=== PATIENT | female | born 1995 | race Caucasian/White ===

== ENCOUNTER → 2016-08-27 | Emergency (ER) | payer MEDICAID ==
[2011-05-26 07:40] VITALS: BMI 14.4
== END | disposition home or self-care (01) ==
LOC: D.ER 16:49
DX: Z02.9 Encounter for administrative examinations, unspecified (principal)

== ENCOUNTER → 2017-08-10 11:06 | Outpatient (CLI) | payer OTHER ==
[2011-05-26 07:40] VITALS: BMI 14.4
[2017-08-10 12:04] LABS: HCG SERUM NEGATIVE (NEGATIVE)
== END | disposition home or self-care (01) ==
LOC: D.NM 08-07 11:30
PROVIDERS: Internal Medicine Gastroenterology
DX: K31.89 Other diseases of stomach and duodenum (principal); R11.10 Vomiting, unspecified; K21.9 Gastro-esophageal reflux disease without esophagitis

== ENCOUNTER 2018-11-17 14:31 | Inpatient (IN) | payer MEDICAID ==
[~2018-11-17] VITALS: Ht 149.9 cm; Wt 59.1 kg
[2018-11-17] MEDS ORDERED: CARAFATE1 G PO (14:33)
[2018-11-17] MEDS ORDERED: BUTALB-APAP-CA1 EACH PO (14:33)
[2018-11-17] MEDS ORDERED: OMEPRAZOLE20 M1 PO (14:34)
--- NOTE | 2018-11-17 14:43 | NUR ---
URINE SAMPLE SENT TO THE LAB AT THIS TIME.
[2018-11-17 15:11] LABS: HCG URINE NEGATIVE (NEGATIVE)
[2018-11-17 15:11] LABS: BASOPHILS 0.1 % (0-2); EOSINOPHILS 0 % (0-7); HEMATOCRIT 36.8 % (36.0-48.0); HEMOGLOBIN 12.5 g/dL (12-16); IMMATURE GRANULOCYTES 0.4 % (0-5); LYMPHOCYTES 7.8 % (15-50); MCH 29.4 pg (26.0-34.0); MCV 86.6 fL (80.0-100.0); MEAN PLATELET VOLUME 10.2 fL (7.4-10.4); MONOCYTES 8.6 % (2-11); NEUTROPHILS 83.1 % (40-80); PLATELET COUNT 263 10x3/uL (130-400); RBC 4.25 10x6/uL (4.00-5.40); RDW 14.1 % (11.5-14.5); WBC 18.8 10x3/uL (4.8-10.8)
[2018-11-17 15:17] LABS: APPEARANCE HAZY (CLEAR); BILIRUBIN NEGATIVE (NEGATIVE); COLOR YELLOW (YELLOW); GLUCOSE NEGATIVE (NEGATIVE); KETONE NEGATIVE (NEGATIVE); NITRITE POSITIVE (NEGATIVE); PROTEIN TRACE mg/dL (NEGATIVE); UROBILINOGEN NORMAL (NORMAL)
[2018-11-17 15:19] LABS: BACTERIA MANY /hpf (NONE SEEN); EPITHELIAL CELLS 0-5 /hpf (0-5); RED CELLS - URINE OCC /hpf (0-5); WHITE CELLS - URINE 25-50 /hpf (0-5)
[2018-11-17 15:24] LABS: ALKALINE PHOSPHATASE 81 U/L (46-116); ALT (SGPT) 12 U/L (10-68); BILIRUBIN - TOTAL 0.39 mg/dL (0.2-1.3); CALC OSMOLALITY 260 mosm/kg (275-300); CALCIUM 8.3 mg/dL (8.5-10.1); CARBON DIOXIDE 25.8 mmol/L (21.0-32.0); CHLORIDE - SERUM 97 mmol/L (98-107); CREATININE - SERUM 0.9 mg/dL (0.6-1.3); GLUCOSE 87 mg/dL (74-106); PROTEIN - SERUM 7.8 g/dL (6.4-8.2); SODIUM 132 mmol/L (136-145); UREA NITROGEN 4 mg/dL (7-18); eGFR NON AFRICAN AMERICAN 81 mL/min (90-120)
[2018-11-17 15:32] LABS: POTASSIUM - SERUM 2.9 mmol/L (3.5-5.1)
--- NOTE | 2018-11-17 15:45 | NUR ---
PT STATES SHE CANNOT DRINK POTASSIUM CL ORAL POWDER D/T TASTE, EDP NOTIFIED.
--- NOTE | 2018-11-17 15:49 | NUR ---
PT LEAVING ED VIA STRETCHER FOR ORDERED CT SCAN. NO SIGNS OF DISTRESS NOTED WHEN LEAVING.
[2018-11-17 16:27] VITALS: BP 119/64
[2018-11-17 17:00] VITALS: BP 111/65
[2018-11-17 17:30] VITALS: BP 98/63
--- NOTE | 2018-11-17 18:30 | NUR ---
NEW PATIENT ADMIT FROM ER WITH PYLONEPHRITIS WITH SEPSIS. PATIENT IS AWAKE, ALERT AND ORIENTED X 4. PATIENT APPEARS IN NO ACUTE DISTRESS. PATIENT DENIES ANY NEEDS OR PAIN . ASSESSMENT COMPLETED. WILL CONTINUE WITH PLAN OF CARE. SR UP X 2 BED IN LOW POSITION AND CALL LIGHT IN REACH.
[2018-11-17 18:32] VITALS: BP 106/73; Ht 149.9 cm; Wt 59.1 kg
[2018-11-17 20:00] VITALS: BP 97/62
--- NOTE | 2018-11-17 20:20 | NUR ---
PT IN BED. PROVIDED BLANKET AND PAIN MED PER REQUEST. PT DENIES FURTHER NEEDS AT THIS TIME.
[2018-11-17 22:48] LABS: ANION GAP 10.2 mmol/L (8-16); CALCIUM 7.2 mg/dL (8.5-10.1); CARBON DIOXIDE 24.1 mmol/L (21.0-32.0); POTASSIUM - SERUM 3.3 mmol/L (3.5-5.1)
[2018-11-18] VITALS: BP 95/58
[2018-11-18 04:00] VITALS: BP 97/64
[2018-11-18 06:54] LABS: BASOPHILS 0.1 % (0-2); EOSINOPHILS 0 % (0-7); HEMATOCRIT 33.9 % (36.0-48.0); HEMOGLOBIN 11.5 g/dL (12-16); IMMATURE GRANULOCYTES 0.3 % (0-5); LYMPHOCYTES 5.2 % (15-50); MCH 29.1 pg (26.0-34.0); MCHC 33.9 g/dL (31.0-37.0); MCV 85.8 fL (80.0-100.0); MEAN PLATELET VOLUME 9.9 fL (7.4-10.4); MONOCYTES 6.7 % (2-11); NEUTROPHILS 87.7 % (40-80); RBC 3.95 10x6/uL (4.00-5.40); RDW 14.2 % (11.5-14.5)
[2018-11-18 06:55] LABS: PLATELET COUNT 209 10x3/uL (130-400); WBC 11.6 10x3/uL (4.8-10.8)
[2018-11-18 07:21] LABS: CALC OSMOLALITY 269 mosm/kg (275-300); CALCIUM 7.5 mg/dL (8.5-10.1); CARBON DIOXIDE 22.2 mmol/L (21.0-32.0); CHLORIDE - SERUM 105 mmol/L (98-107); CREATININE - SERUM 0.9 mg/dL (0.6-1.3); GLUCOSE 100 mg/dL (74-106); MAGNESIUM - SERUM 1.5 mg/dL (1.8-2.4); PHOSPHOROUS 1.9 mg/dL (2.5-4.9); POTASSIUM - SERUM 3.4 mmol/L (3.5-5.1); SODIUM 136 mmol/L (136-145); UREA NITROGEN 7 mg/dL (7-18); eGFR NON AFRICAN AMERICAN 81 mL/min (90-120)
--- NOTE | 2018-11-18 09:30 | NUR ---
REPORT RECEIVED FROM BARREL CHARRER HELPER AND PATIENT CARE ASSUMED. PATIENT LAYING IN BED WITH EYES CLOSED AND BREATHING EVNELY. PATIENT IS STABLE AND VSS. PATIENT DENEIS ANY NEEDS OR PAIN. WILL CONTINUE TO MONITOR. SR UP X 2 BED IN LOW POSTION AND CALL LIGHT IN REACH.
[2018-11-18 12:00] VITALS: BP 114/78
[2018-11-18 14:42] VITALS: BP 110/64
--- NOTE | 2018-11-18 14:51 | NUR ---
PATIENT RESTING COMFORTABLY IN BED WITH BOYFRIEND AT BS. PATIENT IS STABLE AND VSS. WILL CONTINUE TO MONITOR. SR UP X 2 BED IN LOW POSITION AND CALL LIGHT IN REACH.
[2018-11-18 17:13] VITALS: BP 109/68
[2018-11-18 20:00] VITALS: BP 120/73
--- NOTE | 2018-11-18 20:04 | NUR ---
BEDSIDE SHIFT REPORT RECEIVED FROM DAY SHIFT RN, PT CARE ASSUMED. PT AAOX4, LYING IN BED. C/O ABDOMINAL PAIN 11/27, DENIES ANY OTHER NEEDS AT THIS TIME. BED IN LOWEST POSITION, SR X2, CALL LIGHT AND PHONE WITHIN REACH. WILL CONTINUE TO MONITOR.
--- NOTE | 2018-11-18 20:47 | NUR ---
ADMINSITERED TYLENOL AND ANUSOL PER ORDER. PT VERBALIZED UNDERSTANDING OF WAITING TO HAVE A BOWEL MOVEMENT AT LEAST ONE HOUR AFTER ANUSOL ADMINISTRATION. REQUESTED FLAT SHEET AND COOL WASHCLOTH TO HELP WITH FEVER. MOM AND DAUGHTER AT BEDSIDE. BED IN LOWEST POSITION, SR X2, CALL LIGHT AND PHONE WITHIN REACH. WILL CONTINUE TO MONITOR.
--- NOTE | 2018-11-18 21:57 | NUR ---
ADMINISTERED MORPHINE PER ORDER, PER PT REQUEST. REPORTS ABDOMINAL PAIN 8/10 ON A SCALE OF 0-10. BED IN LOWEST POSITION, SR X2, CALL LIGHT AND PHONE WITHIN REACH. WILL CONTINUE TO MONITOR.
[2018-11-19 00:17] VITALS: BP 98/60
[2018-11-19 04:36] VITALS: BP 94/62
[2018-11-19 07:19] VITALS: BP 102/66
--- NOTE | 2018-11-19 07:30 | NUR ---
PT RESTING IN BED WITH BOYFRIEND. VSS AND WNL. SHIFT ASSESSMENT PERFORMED. DENIES ANY NEEDS AT THIS TIME, WILL CONT TO FOLLOW POC
[2018-11-19 10:21] LABS: BASOPHILS 0.1 % (0-2); EOSINOPHILS 0.8 % (0-7); HEMATOCRIT 31.5 % (36.0-48.0); IMMATURE GRANULOCYTES 0.1 % (0-5); LYMPHOCYTES 12.7 % (15-50); MCH 29.3 pg (26.0-34.0); MCHC 34.9 g/dL (31.0-37.0); MEAN PLATELET VOLUME 10.8 fL (7.4-10.4); MONOCYTES 10.9 % (2-11); NEUTROPHILS 75.4 % (40-80); PLATELET COUNT 243 10x3/uL (130-400); RBC 3.75 10x6/uL (4.00-5.40); RDW 14.3 % (11.5-14.5)
[2018-11-19 10:24] LABS: WBC 7.3 10x3/uL (4.8-10.8)
[2018-11-19 10:28] LABS: CALCIUM 7.8 mg/dL (8.5-10.1); CARBON DIOXIDE 20.9 mmol/L (21.0-32.0); CHLORIDE - SERUM 105 mmol/L (98-107); CREATININE - SERUM 0.7 mg/dL (0.6-1.3); GLUCOSE 146 mg/dL (74-106); SODIUM 137 mmol/L (136-145); eGFR NON AFRICAN AMERICAN > 90 mL/min (90-120)
[2018-11-19 10:30] LABS: CALC OSMOLALITY 272 mosm/kg (275-300); UREA NITROGEN 2 mg/dL (7-18)
[2018-11-19 10:31] LABS: POTASSIUM - SERUM 2.6 mmol/L (3.5-5.1)
[2018-11-19] MEDS ORDERED: LEVAQUIN750 MG PO (13:39)
--- NOTE | 2018-11-19 15:26 | NUR ---
DISCHARGE INSTRUCTIONS REVIEWED WITH PT AND ALL QUESTIONS ANSWERED. PIV REMOVED WITH CATHETER TIP INTACT. PT IS WAITING ON RIDE TO ARRIVE
--- NOTE | 2018-11-19 15:32 | MORECARE ---
CASE MANAGEMENT DISCHARGE SUMMARY PATIENT: SEGUN BATES UNIT: [id number] ADM DATE: 11/17/18 AGE: 23 : [birth year] SEX: F ROOM/BED: D.1210 AUTHOR: LUIS,DOC PHYSICIAN: REFERRING PHYSICIAN: DEJA BERGERON MD DATE OF SERVICE: 11/19/18 Discharge Plan Patient Name: SEGUN BATES Facility: [facility]:[place] : 1995 Planned Disposition: Home Anticipated Discharge Date: 11/19/18 Discharge Date: Expected LOS: 2 Initial Reviewer: [email or web address] Initial Review Date: 11/19/2018 Generated: 11/19/18 4:32 pm Comments DCP- Discharge Planning Updated by [email or web address]: Manjit Mcginnis on 11/19/18 2:[address] Patient Name: SEGUN BATES Admission Status: ER Accout number: [id number] Admission Date: 11-17-2018 : 1995 Admission Diagnosis:UNSPECIFIED ABDOMINAL PAIN Attending: DEJA BERGERON Current LOS: 2 Anticipated DC Date: 11-19-2018 Planned Disposition: Home Primary Insurance: MEDICAID [place] Discharge Planning Comments: CM MET WITH PT IN ROOM TO DISCUSS DISCHARGE PLANNING AND NEEDS. PT REPORTS LIVING AT HOME INDEPENDENTLY WITH HER MOTHER. PT HAS NO MEDICAL EQUIPMENT AND NO OUTSIDE SERVICES ASSISTING IN THE HOME. CM DISCUSSED AVAILABILITY OF HOME HEALTH, REHAB SERVICES AND MEDICAL EQUIPMENT. PT DENIES DISCHARGE NEEDS, REPORTS HER MOTHER WILL PICK SHE AND HER BOYFRIEND UP FOR DISCHARGE HOME. IF SHE DOES NOT, PT'S BOYFRIEND HAS THREE DOLLARS AND CAN PAY FOR BUS TRANSPORT TO HIS APARTMENT UNTIL PT'S MOTHER CAN FINANCIAL RESERVE CLERK PT. PT PLANS TO DISCHARGE HOME WITH MOTHER, PT'S MOTHER TO FINANCIAL RESERVE CLERK FOR DISCHARGE HOME. PT DENIES DISCHARGE NEEDS. Stopboard Assembler: Manjit Mcginnis DCPIA - Discharge Planning Initial Assessment Updated by [email or web address]: Manjit Mcginnis on 11/19/18 3:28 pm * Is the patient Alert and Oriented? Yes * How many steps to enter\exit or inside your home? * PCP DR. NOWAK * Pharmacy [facility] * Preadmission Environment Home with Family * ADLs Independent * Equipment None * Other Equipment NO MEDICAL EQUIPMENT PROVIDER PREFERENCE * List name and contact numbers for known caregivers / representatives who currently or will assist patient after discharge: CATRACHITA CHATMAN, MOTHER, * Verbal permission to speak to the caregivers and representatives has been obtained from the patient. N/A * Community resources currently utilized None * Please name any agencies selected above. NONE * Additional services required to return to the preadmission environment? No * Can the patient safely return to the preadmission environment? Yes * Has this patient been hospitalized within the prior 30 days at any hospital? No Patient Name: SEGUN BATES Page [id number] at 1532 All edits/amendments must be made on the electronic document DICTATION DATE: 11/19/18 153 CERTIFIED OPHTHALMIC SURGICAL ASSISTANT: JAMES 11/19/181531 RPT#: [id number] DC DATE: STATUS: ADM IN [facility] [address] [place] [address] END OF REPORT
--- NOTE | 2018-11-19 16:57 | NUR ---
ASSISTED PT TO FRONT OF HOSPITAL VIA WHEELCHAIR WHERE SHE LEFT WITH HER MOM
== END 2018-11-19 16:58 | disposition home or self-care (01) | DRG 690 ==
LOC: D.ER 14:31 → D.M3 17:33
PROVIDERS: Family Medicine; ADMIT Internal Medicine Nephrology; ATTEND Internal Medicine Nephrology
DX: N12 Tubulo-interstitial nephritis, not specified as acute or chronic (principal); E87.1 Hypo-osmolality and hyponatremia; F17.213 Nicotine dependence, cigarettes, with withdrawal; N17.9 Acute kidney failure, unspecified; E87.6 Hypokalemia; D64.9 Anemia, unspecified; K21.9 Gastro-esophageal reflux disease without esophagitis

== ENCOUNTER 2019-03-11 13:06 | Emergency (ER) | payer MEDICAID ==
[~2019-03-11] VITALS: Ht 149.9 cm; Wt 54.5 kg
[~2019-03-11 13:06] MED LIST: BUTALB-APAP-CA1 EACH PO; CARAFATE1 G PO; LEVAQUIN750 MG PO; OMEPRAZOLE20 M1 PO
[2019-03-11 13:09] VITALS: Ht 149.9 cm; Wt 54.5 kg
[2019-03-11 13:50] LABS: BASOPHILS 0.1 % (0-2); EOSINOPHILS 0.5 % (0-7); HEMATOCRIT 35.9 % (36.0-48.0); HEMOGLOBIN 12.2 g/dL (12-16); IMMATURE GRANULOCYTES 0.2 % (0-5); LYMPHOCYTES 9.4 % (15-50); MCH 29.5 pg (26.0-34.0); MCV 86.7 fL (80.0-100.0); MEAN PLATELET VOLUME 9.8 fL (7.4-10.4); NEUTROPHILS 79.8 % (40-80); RBC 4.14 10x6/uL (4.00-5.40); RDW 13.4 % (11.5-14.5); WBC 13.6 10x3/uL (4.8-10.8)
[2019-03-11 13:51] LABS: PLATELET COUNT 340 10x3/uL (130-400)
[2019-03-11 13:54] LABS: HCG SERUM POSITIVE (NEGATIVE)
[2019-03-11 14:00] LABS: ALBUMIN 2.9 g/dL (3.4-5.0); ALKALINE PHOSPHATASE 94 U/L (46-116); ALT (SGPT) 23 U/L (10-68); CALC OSMOLALITY 266 mosm/kg (275-300); CALCIUM 8.8 mg/dL (8.5-10.1); CARBON DIOXIDE 26.6 mmol/L (21.0-32.0); CHLORIDE - SERUM 102 mmol/L (98-107); CREATININE - SERUM 0.6 mg/dL (0.6-1.3); GLUCOSE 95 mg/dL (74-106); POTASSIUM - SERUM 3.3 mmol/L (3.5-5.1); PROTEIN - SERUM 7.5 g/dL (6.4-8.2); SODIUM 135 mmol/L (136-145); UREA NITROGEN 3 mg/dL (7-18); eGFR NON AFRICAN AMERICAN > 90 mL/min (90-120)
[2019-03-11 14:29] LABS: APTT 30.3 SECONDS (22.8-39.4); INR 1.04 (0.85-1.17); PROTIME 13.1 SECONDS (11.6-15.0)
[2019-03-11 14:53] LABS: APPEARANCE HAZY (CLEAR); COLOR YELLOW (YELLOW)
[2019-03-11 14:54] LABS: BILIRUBIN NEGATIVE (NEGATIVE); EPITHELIAL CELLS 0-5 /hpf (0-5); GLUCOSE NEGATIVE (NEGATIVE); KETONE NEGATIVE (NEGATIVE); NITRITE NEGATIVE (NEGATIVE); PROTEIN NEGATIVE (NEGATIVE); RED CELLS - URINE 0-5 /hpf (0-5); UROBILINOGEN NORMAL (NORMAL)
[2019-03-11 14:55] LABS: BACTERIA MANY /hpf (NEGATIVE)
[2019-03-11] MEDS ORDERED: KEFLEX500 MG PO (17:39)
[2019-03-11] MEDS ORDERED: MACROBID100 MG PO (17:39)
[2019-03-11] MEDS ORDERED: ACETAMINOPHEN500 M1 PO (17:41)
[2019-03-11] MEDS ORDERED: CYCLOBENZAPRINE10 MG PO (17:41)
[2019-03-11 18:18] VITALS: BP 118/68
== END 2019-03-11 18:19 | disposition home or self-care (01) ==
LOC: D.ER 13:06
PROVIDERS: Family Medicine
DX: O26.899 Other specified pregnancy related conditions, unspecified trimester (principal); Z3A.00 Weeks of gestation of pregnancy not specified; R10.9 Unspecified abdominal pain; R07.89 Other chest pain; M79.18 Myalgia, other site; Y09 Assault by unspecified means